=== PATIENT | female | born 1945 | race Caucasian/White ===

== ENCOUNTER 2020-07-21 10:38 | Day surgery (SDCO) | payer OTHER ==
[~2020-07-21 10:38] MED LIST: PRAVACHOL20 MG PO; PROCARDIA XL60 MG PO; SEROQUEL 100MG100 MG PO; SYNTHROID75 MCG PO
[2020-07-21] MEDS ORDERED: CALCITONIN-SAL3.7 ML INH (13:25)
[2020-07-21 13:45] LABS: EOSINOPHIL 1.1 % (0-7); HCT 41.6 % (37.0-47.0); HGB 13.4 g/dl (12.5-16.0); LYMPHOCYTE 25.7 % (15-48); MCH 30.2 pg (25.0-31.0); MCHC 32.2 g/dL (32.0-36.0); MCV 93.9 fL (78.0-100.0); MONOCYTE 8.8 % (0-12); MPV 10.3 fL (6.0-9.5); NRBC 0; PLT 284 K/uL (150-400); RBC 4.43 M/uL (4.20-5.40); RDW 12.9 % (11.5-14.0); WBC 7.2 K/uL (4.0-10.5)
[2020-07-21 14:05] LABS: BUN/CREAT RATIO (CALC) 11.6 RATIO; CREATININE 1.73 mg/dL (0.51-0.95); POTASSIUM 3.8 mmol/L (3.5-5.1)
[2020-07-21] MEDS ORDERED: ELIQUIS5 MG PO (14:52)
--- NOTE | 2020-07-21 14:52 | NUR ---
PT AMBROSIO IS 141.00 SPOKE TO PT SHE IS OK WITH COPAY
== END 2020-07-21 15:35 | disposition home or self-care (01) ==
LOC: FIS 10:38 → FMS 12:25
PROVIDERS: ADMIT Allergy & Immunology Allergy
DX: I82.432 Acute embolism and thrombosis of left popliteal vein (principal); E03.9 Hypothyroidism, unspecified; F31.9 Bipolar disorder, unspecified; E78.5 Hyperlipidemia, unspecified; I10 Essential (primary) hypertension; Z87.448 Personal history of other diseases of urinary system; Z79.01 Long term (current) use of anticoagulants; Z20.822 Contact with and (suspected) exposure to COVID-19
CPT/HCPCS: 36415; 80048; 85025; 93971; G0378; J1650; U0002